=== PATIENT | male | born 1950 | race Caucasian/White ===

== ENCOUNTER 2016-04-23 11:50 | Inpatient (IN) | payer MEDICARE ==
[2016-06-26] MEDS ORDERED: LACTATED RINGERS 1,000 ML ONE ×2 (07:29→12:41)
[2016-06-26] MEDS ORDERED: IV START KIT ONE (07:29)
[2016-06-26] MEDS ORDERED: GABAPENTIN 600 MG TABLET PO ONE (07:30)
[2016-06-26] MEDS ORDERED: OXYCODONE HCL 10 MG TAB.SR PO ONE ×2 (07:30→08:33)
[2016-06-26] MEDS ORDERED: CEFAZOLIN SODIUM 2 GRAM PREMIX 100 ML IV PRN (07:30)
[2016-06-26] MEDS ORDERED: CELECOXIB 200 MG CAPSULE PO ONE (07:30)
[2016-06-26] MEDS ORDERED: TRAMADOL HCL 50 MG TABLET PO ONE (07:30)
[2016-06-26] MEDS ORDERED: CLONIDINE HCL 0.1 MG/24 HR (7 DAY PATCH) TD SCH (07:30)
[2016-06-26] MEDS ORDERED: CEFAZOLIN SODIUM 2 GRAM PREMIX 100 ML IV ONE (07:30)
[2016-06-26] MEDS ORDERED: ONDANSETRON 4 MG/2ML 2 ML VIAL IV ONE (07:30)
[2016-06-26] MEDS ORDERED: FAMOTIDINE 20 MG TABLET PO ONE (07:30)
--- NOTE | 2016-06-26 08:30 | HP ---
DATE OF CLINIC: 06/20/2016 IRVIN HOYT : 1950 PLANNED PROCEDURE: Left Knee Medial Uni-compartmental Arthroplasty, Possible Total Knee Arthroplasty DATE OF PROCEDURE: June 26, 2016 SURGEON: Irvin Barroso M.D. PCP: Dr. Eduardo Bustamante HISTORY OF PRESENT ILLNESS Irvin Hoyt is a 66 year old male. * Medication list reviewed with patient allergy list reviewed with patient. * Tried NSAIDS IBU, diclofenac * Tried Physical Therapy * Has not tried Injections Mr. Hoyt is in today pre-operatively for his upcoming left uni-compartmental knee arthroplasty. Patient presents in good spirits and is eager to proceed. 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 This required a subsequent left temporal lymph nodectomy on 05/07/16. He will also be having radiation treatment in the weeks following his L TKA. Patient otherwise denies any recent illness or prior surgical complications. His recent consultation with Dr. Barroso follows: 65-year-old male here for evaluation of bilateral, atraumatic, progressive knee pain. He feels that this is somewhat worse on the left side. Discomfort is primarily medial. Intermittent Diclofenac is helpful. He has no radicular symptoms, no hip pain. Of note, he is previously managed by Dr. Dyllan Cornelius in [place] including a left knee arthroscopy in 2008, those notes are available. He had a medial meniscal tear with grade III changes of the medial femoral condyle, grade II changes of the patellofemoral joint, grade III changes in the lateral tibial plateau. More recently, approximately a year ago, he saw his PCP, Dr. Bustamante. He had radiographs done last February demonstrating degenerative disease. He is here today for discussion of a treatment algorithm. He feels fairly limited. He denies any significant additional comorbidities. He is a recently retired forester. CURRENT MEDICATION * Atorvastatin Calcium 10 MG Tablet 1 once a day 90 days, 0 refills * Diclofenac Sodium 75 MG Tablet Delayed Release 2 once a day 30 days, 0 refills * Escitalopram Oxalate 10 MG Tablet 1 once a day 90 days, 0 refills * OneTouch Delica Lancets 33G Miscellaneous as directed 50 days, 0 refills * [employer] Sync System w/Device Kit as directed 90 days, 0 refills PAST MEDICAL/SURGICAL HISTORY Reported: Medical: History of Arthritis knees. Surgical / Procedural: Hernia repair double hernia repair 2012 and Arthroscopy Left knee scope 2005. SOCIAL HISTORY Behavioral: Caffeine use and non-smoker quit smoking stopped 35+ years ago. Smoking status: Former smoker. Alcohol: Alcohol 2-3 bud lights a day and alcohol use. Work: Occupation Retired forester. ALLERGIES * No Known Allergies REVIEW OF SYSTEMS Systemic: No fever and no recent weight change. Head: No head symptoms. Cardiovascular: No cardiovascular symptoms. Pulmonary: No pulmonary symptoms. Gastrointestinal: No gastrointestinal symptoms. Psychological: No psychological symptoms. Skin: Skin lesion: Recent left temporal ROEL's procedure and lymph nodectomy. No rash. PHYSICAL FINDINGS * Vitals taken 06/20/2016 01:23 pm BP-Sitting L 116/61 mmHg 100 - 120/60 - 80 BP Cuff Size Regular Pulse Rate-Sitting 49 bpm 50 - 100 Temp-Oral 96.8 F 96 - 101 Height 68 in 64 - 74 Weight 185 lbs 3.2 oz 123 - 215 Body Mass Index 28.2 kg/m2 Body Surface Area 1.98 m2 Ears, Nose, Throat: * ENT: normal. Lungs: * Clear to auscultation. Cardiovascular: Heart Rate and Rhythm: * Normal. Abdomen: * Normal. Neurological: Motor: * Dominant Hand = Right Hand. A formal exam was not done today. Patient is an obese male in no acute distress, normal-appearing mood and affect. He ambulates with a normal, symmetric, heel-to-toe gait, although has startup stiffness. On standing he has genu varum bilaterally, more notable on the left. These are both partially correctable towards neutral. Right knee exam shows skin integrity to be well-preserved, no wounds, rashes or lesions. No swelling, no gross effusion. Motion is 0-125 degrees. Mild tenderness over the medial aspect of the knee, diffusely, NT laterally and no pain with patellar compression. Patella tracks well. Ligamentous exam is intact for cruciates and collaterals. NT over the anteromedial proximal tibia. Calf is soft and NT. Distal light touch sensation and motor function are grossly intact and symmetric. Pulses are palpable. Gentle rotation of the hip is non-irritable. Left knee exam shows skin integrity to be well-preserved, no wounds, rashes or lesions. No swelling, no gross effusion. Motion is 3-125 degrees. Mild tenderness medial, fairly diffuse, NT lateral and no pain with patellar compression. Patella tracks well. Ligamentous exam is intact for cruciates and collaterals. NT over the anteromedial proximal tibia. Calf is soft and NT. Distal light touch sensation and motor function are grossly intact and symmetric. Pulses are palpable. Gentle rotation of the hip is non-irritable. TESTS I did review his prior radiographs. 4 views of bilateral knees obtained 09/06/15 show complete medial joint space loss most notable on the AP view with periarticular sclerosis and resultant varus deformity. Lateral compartment is relatively well preserved. Patellofemoral articulation shows mild lateral facet narrowing bilaterally, more notable on the right. ASSESSMENT * Localized primary osteoarthritis of the left knee Advanced DJD, left knee, with varus deformity. Advanced DJD, right knee, with varus deformity. PREVIOUS TESTS * Test: CBC WITH DIFF Report Date: 06/06/2016 WBC 6.4 10*3/mL BASOPHIL 0.3 % RBC 4.93 10*6/uL NEUTROPHILS 63.6 % MCH 30.8 pg MCHC 34.2 g/dL RDW 12.0 % MCV 90.3 fL PLATELET COUNT 193 10*3/mL IMM NEUT % 0.2 % IMM NEUT # 0.0 10*3/mL MONOCYTES 8.9 % EOSINOPHIL 0.8 % Low HCT 44.5 % HGB 15.2 g/L LYMPHOCYTE 26.2 % ANC 4.1 10*3/mL * Test: URINALYSIS Report Date: 06/06/2016 GLUCOSE NEGATIVE PH,URINE 6.0 SPEC. GRAVITY 1.015 KETONE NEGATIVE NITRITE NEGATIVE BLOOD NEGATIVE BILIRUBIN NEGATIVE APPEARANCE CLEAR PROTEIN NEGATIVE COLOR YELLOW LEUK ESTERASE NEGATIVE UROBILINOGEN NORMAL * Test: COMPREHENSIVE METABOLIC PANEL Report Date: 06/06/2016 ALT/SGPT 27 U/L ALBUMIN 4.0 g/dL ALB/GLOB RATIO 1.8 BUN 22 mg/dL BUN/CREAT RATIO 22 High CALCIUM 9.7 mg/dL GLUCOSE 90 mg/dL CREATININE 1.0 mg/dL SODIUM 138 meq/L POTASSIUM 4.4 meq/L CHLORIDE 104 meq/L CARBON DIOXIDE 28 meq/L ANION GAP 10 meq/L TOT PROTEIN 6.2 g/dL Low GLOBULIN 2.2 g/dL Low BILI,TOTAL 0.8 mg/dL AST/SGOT 20 U/L ALK PHOSPHATASE 50 U/L GFR 75 * Test: PROTHROMBIN TIME Report Date: 06/06/2016 PROTIME 10.5 s INR 1.00 * Test: PARTIAL THROMBOPLASTIN TIME Report Date: 06/06/2016 APTT 23.8 s Low * Test: CULTURE, MRSA Report Date: 06/07/2016 CULTURE, MRSA See Report THERAPY * Patient fall risk screen negative. * Patient eligible for fall risk assessment. * Patient received fall risk assessment. PLAN * Unilateral primary osteoarthritis, left knee Physical Therapy: PT [facility] * OTHER OxyCONTIN 10 MG T12A, 1 po q 12 hours-TO BE USED FOR AFTER SURGERY, 10 days, 0 refills OxyCODONE HCl 5 MG TABS, 1-2 po q 4-6 hours for break thru pain if needed-TO BE USED FOR AFTER SURGERY, 5 days, 0 refills * Knee replacement -partial, on the left Discussed with patient in detail the limitations, expectations as well as risks and possible complications of surgery including, but not limited to wound problems or infection, neurovascular injury, continued knee pain or dysfunction, including the possibility of prosthetic wear or failure over time that may require additional operative or non-operative treatment. Patient also realizes the perioperative risks including risks associated with anesthesia and would like to proceed. A full PAR conference was held, questions and concerns addressed and informed consent was obtained. Patient will be sent from my office for completion of the preoperative workup. Patient will use aspirin 325mg daily for 6 weeks postoperatively for DVT prophylaxis. Patient would like to perform their postop PT at [facility] with left total knee arthroplasty protocol. CARE TEAM Eduardo Bustamante MD Internal Medicine CC: Zenon Bustamante [facility], [facility]
[2016-06-26] MEDS ORDERED: CLONIDINE HCL 0.1 MG/24 HR (7 DAY PATCH) TD ONE (08:33)
[2016-06-26] MEDS ORDERED: TRAMADOL HCL 50 MG TABLET ONE (08:33)
[2016-06-26] MEDS ORDERED: ONDANSETRON 4 MG/2ML 2 ML VIAL ONE (08:33)
[2016-06-26] MEDS ORDERED: GABAPENTIN 600 MG TABLET ONE (08:33)
[2016-06-26] MEDS ORDERED: FAMOTIDINE 20 MG TABLET ONE (08:33)
[2016-06-26] MEDS ORDERED: CELECOXIB 200 MG CAPSULE ONE (08:33)
[2016-06-26] MEDS ORDERED: ROPIVACAINE 0.5% 30 ML VIAL ONE (09:15)
[2016-06-26] MEDS ORDERED: NERVE BLOCK PROCEDURAL TRAY 1 EACH ONE (09:16)
[2016-06-26] MEDS ORDERED: MIDAZOLAM HCL 5 MG/5 ML VIAL ONE ×2 (09:18→12:15)
[2016-06-26] MEDS ORDERED: FENTANYL 100 MCG/2 ML VIAL ONE (09:18)
[2016-06-26] MEDS ORDERED: TRANEXAMIC ACID 1,000 MG in SODIUM CHLORIDE 0.9% 100 ML IV PRN (09:50)
[2016-06-26] MEDS ORDERED: BUPIVACAINE 0.25% (MDV) 24 ML, MORPHINE SULFATE 8 MG, EPINEPHRINE 0.3 MG in SODIUM CHLO... IF PRN (09:50)
[2016-06-26] MEDS ORDERED: POLYMYXIN B SULFATE 500,000 UNITS, BACITRACIN 25,000 UNITS in SODIUM CHLORIDE 3 L IRRIG... IR PRN (09:50)
[2016-06-26] MEDS ORDERED: BUPIVACAINE 0.25% (MDV) 20 ML in SODIUM CHLORIDE 0.9% FLUSH 20 ML IF PRN (09:50)
[2016-06-26] MEDS ORDERED: ATROPINE SULFATE 0.4 MG/1 ML VIAL IV PRN (10:43)
[2016-06-26] MEDS ORDERED: ONDANSETRON 4 MG/2ML 2 ML VIAL IV PRN ×2 (10:43→13:35)
[2016-06-26] MEDS ORDERED: ON-Q PUMP/ROPIVACAINE 0.2% 450 ML in PREMIX BAG 1 EACH NB PRN ×2 (10:43→13:35)
[2016-06-26] MEDS ORDERED: PROMETHAZINE HCL 25 MG/ML VIAL IM PRN (10:43)
[2016-06-26] MEDS ORDERED: NALOXONE HCL 0.4 MG/ML VIAL IV PRN (10:43)
[2016-06-26] MEDS ORDERED: HYDRALAZINE HCL 20 MG/1 ML VIAL IV PRN (10:43)
[2016-06-26] MEDS ORDERED: MORPHINE SULFATE 4 MG/ML SYRINGE IV PRN (10:43)
[2016-06-26] MEDS ORDERED: MEPERIDINE 25 MG/ML SYRINGE IV PRN (10:43)
[2016-06-26] MEDS ORDERED: LACTATED RINGERS 1,000 ML IV SCH (10:45)
[2016-06-26] MEDS ORDERED: SPINAL PROCEDURAL TRAY 1 EACH ONE (11:17)
[2016-06-26] MEDS ORDERED: GLYCOPYRROLATE 0.2 MG/ML 1ML VIAL ONE (11:17)
[2016-06-26] MEDS ORDERED: DIPHENHYDRAMINE HCL 50 MG/1 ML VIAL ONE (11:17)
[2016-06-26] MEDS ORDERED: BUPIVACAINE 0.75% SPINAL AMPUL 2 ML ONE (11:17)
--- NOTE | 2016-06-26 12:16 | PCMBPN ---
Brief Post Op Note: Date of Procedure: 06/26/16 Preoperative Diagnosis: DJD left knee Postoperative Diagnosis: 1. [Same] Procedure: left UKA Surgeon: Chung Barroso MD Assist: Damaris(KIERA) Anesthesia: spinal/add block (Braulio) Findings: medial DJD Condition: stable to PAR Complications: none IV Fluids: 188 mLs of LR Urine Output: 350 mLs Estimated Blood Loss: 100 mLs Tourniquet Time: ~70 minutes Specimens: [N/A] Implants: ZUK Drains: none
[2016-06-26] MEDS ORDERED: ON-Q PUMP/ROPIVACAINE 0.2% 450 ML ONE (12:21)
--- NOTE | 2016-06-26 13:13 | RAD ---
Exam: Two-view left knee COMPARISON: 09/06/2015 INDICATION: Postop knee. Findings: AP and crosstable lateral views of left knee were obtained. There has been arthroplasty within the medial compartment of the left knee. No pericomponent fracture is identified. Alignment has improved. IMPRESSION: Expected postoperative appearance following medial compartment arthroplasty in the left knee.
[2016-06-26] MEDS ORDERED: OXYCODONE HCL 5 MG TABLET PO PRN (13:35)
[2016-06-26] MEDS ORDERED: KETOROLAC TROMETHAMINE 30 MG/ML 1 ML VIAL IV PRN (13:35)
[2016-06-26] MEDS ORDERED: CALCIUM CARBONATE 500 MG TAB.CHEW PO PRN (13:35)
[2016-06-26] MEDS ORDERED: HYDROMORPHONE HCL 0.5 MG/0.5 ML SYRINGE IV PRN (13:35)
[2016-06-26] MEDS ORDERED: TEMAZEPAM 15 MG CAPSULE PO PRN (13:35)
--- NOTE | 2016-06-26 13:36 | OP ---
IRVIN GRIFFITH [id number] : 1950 DATE OF SURGERY: June 26, 2016 PREOPERATIVE DIAGNOSIS: Left knee medial unicompartmental degenerative joint disease POSTOPERATIVE DIAGNOSIS: SAME PROCEDURE: Left Knee Medial Unicompartmental Arthroplasty COMPONENTS: ZUK size E cemented femoral component, size 4 cemented tibial base plate, 9mm Vivacit E highly cross-linked polyethylene articular insert. SURGEON: Irvin Barroso M.D. CHAPLAIN: Damaris GRAHAM) ANESTHESIA: Spinal plus adductor nerve block per Braulio ESTIMATED BLOOD LOSS: 100 cc IV FLUID REPLACEMENT: per anesthesia, 1800 cc crystalloid. URINE OUTPUT: 350 cc DRAINS: None TOURNIQUET TIME: Approximately 70 minutes COMPLICATIONS: None HISTORY: Briefly, patient is a 66-year-old male with clinical and radiographic evidence of advanced degenerative disease of the medial compartment of the left knee. Patient has failed traditional non-operative management and desire elective unicompartmental arthroplasty vs total knee arthroplasty. For additional details, please refer to the previously dictated Preoperative History and Physical Examination. A PAR conference was held, questions and concerns were addressed, and informed consent was obtained. FINDINGS: Advanced degenerative changes, near full extension under anesthesia and changes were localized with eburnated bone medially. One small spur in the notch. Patellofemoral joint was otherwise spared. Lateral compartment was normal. ACL was normal. Bone integrity was reasonable. PROCEDURE: The patient was taken to the operating room after the placement of a spinal anesthetic and regional nerve block. They were placed supine on the operating room table, a tourniquet was applied to the proximal thigh and the left lower extremity was prepped and draped out in the usual sterile fashion. Preoperative IV antibiotics were given empirically. Intraoperative DVT prophylaxis consisted of contralateral foot pumps. Personal filtration suits were used as was a closed room environment. At this point WHO timeout was taken. Surgical site was identified and confirmed. The leg was then elevated and the tourniquet inflated after gravity exsanguination. Tranexamic acid was infiltrated over 10 minutes prior to incision, 1 gram dose per protocol. A similar 2nd dose was given at initiation of closure. With the knee flexed, an anteromedial incision was made from the level of the tibial tubercle to the superior pole of the patella. A medial arthrotomy was performed. A medial subperiosteal proximal tibial release was performed and a portion of the anterior fat pad was excised to improve visualization. We evaluated the involvement of the patellofemoral compartment as well as the lateral compartment. We confirmed the ACL was intact. The anterior horn of the medial meniscus was excised. Minimally invasive instrumentation and philosophy were used throughout the procedure in an attempt to decrease the extent of soft tissue disruption/damage. Initial attention was directed to the tibia. Extramedullary tibial alignment jig was positioned and secured to bone. We setup alignment, made a cut of the medial proximal tibia perpendicular to the long axis of the tibia. This was done with a sagittal and reciprocating saw. Medial marginal osteophytes were removed. Attention was then directed to the femur. With the knee in extension we placed an appropriate spacer jig and then secured the distal femoral jig. This cut was made using a reciprocating saw. We then confirmed reasonable flexion and extension balance. We confirmed the size of the femur, placed the appropriate posterior and posterior chamfer cutting block. These cuts were made as were drilling of the femoral lugs. Residual marginal osteophytes were removed. We then confirmed the flexion and extension gaps were balanced. Tibia was then sized. We removed remaining posterior meniscal tissue. We passed a small osteotome at the lateral border and placed our tibial trial. Tibial lugs were drilled and we trialed the entire construct obtaining full extension and smooth rollback. Satisfied, double antibiotic pulsatile lavage was used to irrigate the knee and clean the cancellous suzette interstices which were then carefully dried. Periarticular injection was done at this point per protocol of the posterior capsule, posteromedial knee and synovium. A single dose of high viscosity, antibiotic impregnated polymethylmethacrylate was used to cement the tibial followed by femoral components. The knee was held in extension while the cement cured. All residual methacrylate was meticulously removed. Attention was then directed towards closure. Tranexamic acid was infiltrated over 10 minutes, dose per protocol. We irrigated and the retinaculum was closed with a running #2 absorbable StratoFix suture. A second periarticular injection was done at this point per protocol. The repair was checked in maximum flexion. We then lightly irrigated the subcutaneous tissue and closed with interrupted 2-0 and 3-0 Vicryl Plus. The skin was then re-approximated with a running subcuticular Monocryl followed by Dermabond Prineo and a sterile dressing was applied followed by a compression dressing. The patient was then transferred to their hospital bed and sent to the post anesthesia recovery room in stable condition. They tolerated the procedure well. Sponge, instrument, and needle count were correct. CC: Eduardo Bustamante PT [facility]
[2016-06-26 14:22] VITALS: BMI 27.3
[2016-06-26] MEDS ORDERED: PUMP TUBING ONE (14:45)
[2016-06-26] MEDS: D5 1/2NS with 20 mEq KCL 1,000 ML IV SCH ×2 (14:50→23:28)
[2016-06-26] MEDS: CEFAZOLIN SODIUM 1 GRAM PREMIX 1 G in Premix (D5W) 50 ml 1 EACH IV SCH (17:51)
[2016-06-26] MEDS: ACETAMINOPHEN 500 MG TABLET PO SCH (19:43)
[2016-06-26] MEDS: DOCUSATE SODIUM 100 MG CAPSULE PO SCH (20:09)
[2016-06-26] MEDS: ASCORBIC ACID 500 MG TABLET PO SCH (20:09)
[2016-06-26] MEDS ORDERED: WATER FOR IRRIG,STERILE 500 ML BOT ONE (20:17)
[2016-06-26] MEDS ORDERED: ATORVASTATIN CALCIUM 10 MG TABLET PO SCH (21:00)
[2016-06-26] MEDS ORDERED: ESCITALOPRAM 10 MG TABLET PO SCH (21:00)
[2016-06-27] MEDS: CEFAZOLIN SODIUM 1 GRAM PREMIX 1 G in Premix (D5W) 50 ml 1 EACH IV SCH (02:43)
[2016-06-27] MEDS: ACETAMINOPHEN 500 MG TABLET PO SCH ×3 (02:43→13:32)
[2016-06-27 06:08] LABS: HEMATOCRIT 38.7 % (32.0-52.0); HEMOGLOBIN 12.4 gm/l (14.0-18.0); MEAN CELL VOLUME 94.2 fl (80.0-94.0); MEAN CORPUSCULAR HEMOGLOBIN 30.2 pg (27.0-31.0)
[2016-06-27] MEDS: D5 1/2NS with 20 mEq KCL 1,000 ML IV SCH (07:27)
[2016-06-27] MEDS ORDERED: REMOVE PATCH 1 EACH UNIT TD SCH (07:30)
[2016-06-27] MEDS: DOCUSATE SODIUM 100 MG CAPSULE PO SCH (08:47)
[2016-06-27] MEDS: ASCORBIC ACID 500 MG TABLET PO SCH (08:47)
[2016-06-27] MEDS ORDERED: ASPIRIN (ENTERIC COATED) 325 MG TABLET.EC PO SCH (09:00)
[2016-06-27] MEDS ORDERED: CELECOXIB 200 MG CAPSULE PO SCH (09:00)
[2016-06-27] MEDS ORDERED: DICLOFENAC SODIUM 75 MG TABLET.EC PO SCH (09:00)
[2016-06-27] MEDS ORDERED: MULTIVITAMINS 1 TAB TABLET PO SCH (09:00)
--- NOTE | 2016-06-27 09:04 | PDOC43 ---
- Subjective Findings: Ortho POD 1 L UKA Patient awake alert and oriented times 4 this am and in good spirits. Presently finishing breakfast. No active c/o. Knee pain is well controlled. Denies CP/SOB/ NV. Taking a regular diet and positive flatus. Eager to start PT/OT. Performing bed exercises without complications. Subjective: Denies Chest Pain, Denies Shortness of Breath, Denies Nausea, Denies Vomiting, Denies Fever - Objective Vital Signs Temperature 97.8 F 06/27/16 07:36 Pulse Rate 45 06/27/16 07:36 Respiratory Rate 16 06/27/16 07:36 Blood Pressure 110/65 06/27/16 07:36 O2 Saturation by Pulse Oximetry 100 06/27/16 07:36 Oxygen Delivery Method Room Air Oxygen Flow Rate 0 Laboratory 06/27/16 05:30 06/27/16 06/26/16 06/26/16 05:30 20:19 17:58 RBC 4.11 L MCV 94.2 H MCHC 32.0 L POC Capillary Glucose 119 H 55 L Active Medication Orders Category Date Time Status Acetaminophen [Tylenol] Med 06/26/16 19:30 Active 1,000 mg PO Q6H Ascorbic Acid [Vitamin C] Med 06/26/16 21:00 Active 500 mg PO BID Aspirin (Enteric Coated) [Ecotrin] Med 06/27/16 09:00 Active 325 mg PO DAILY Atorvastatin Calcium [Lipitor] Med 06/26/16 21:00 Active 10 mg PO BEDTIME Bisacodyl [Dulcolax] Med 06/29/16 12:24 Active 10 mg MS DAILY PRN Calcium Carbonate [Tums] Med 06/26/16 13:35 Active 1,000 - 2,000 mg PO Q2H PRN Celecoxib [Celebrex] Med 06/27/16 09:00 Active 200 mg PO DAILY D5 1/2NS with 20 mEq KCL [D51/2NS with 20 mEq KCL] 1, Med 06/26/16 13:35 Active 000 ml IV 125 mls/hr Diclofenac Sodium [Voltaren] Med 06/27/16 09:00 Active 75 mg PO BID Docusate Sodium [Colace] Med 06/26/16 21:00 Active 100 mg PO BID Escitalopram Oxalate [Lexapro] Med 06/26/16 21:00 Active 10 mg PO BEDTIME Hydromorphone HCl [Dilaudid] Med 06/26/16 13:35 Active 0.5 mg IV Q1H PRN Ketorolac Tromethamine [Toradol] Med 06/26/16 13:35 Active 30 mg IV Q6H PRN Magnesium Hydroxide [Milk of Magnesia] Med 06/27/16 12:24 Active 30 ml PO DAILY PRN Multivitamins [One-A-Day] Med 06/27/16 09:00 Active 1 tab PO DAILY On-Q Pump/Ropivacaine 0.2% 450 ml Med 06/26/16 13:35 Active Premix Bag [Premix Fluid] 1 each NB Q50H Ondansetron 4 mg/2ml Vial [Zofran] Med 06/26/16 13:35 Active 4 - 6 mg IV Q6H PRN Oxycodone HCl [Roxicodone] Med 06/26/16 13:35 Active 5 - 10 mg PO Q4H PRN Remove Patch Med 06/27/16 12:24 Once 1 each TD X1 ONE Sodium Chloride 0.9% Flush [Normal Saline 10ml Flush] Med 06/26/16 13:35 Active 10 - 50 ml IV PRN PRN Sodium Chloride 0.9% Flush [Normal Saline 10ml Flush] Med 06/26/16 17:00 Active 10 ml IV Q8HR Temazepam [Restoril] Med 06/26/16 13:35 Active 15 mg PO BEDTIME PRN Intake and Output 06/25/16 06/26/16 06/27/16 23:59 23:59 23:59 Intake Total 2373 3142 Output Total 950 1500 Balance 1423 1642 Neurological: No Normal Gait (ambulating with walker post L UKA) Peripheral Pulses: Left Posterior Tibialis: 2+, Left Dorsalis Pedis: 2+ - Left Lower Extremity Incision: Well Approximated (with a sub Q closure, mesh and skin glue. Mild knee edema. Thigh and calf are SNT.), No Dressing Saturated, No Shadow Drainage , No Drainage, No Erythema, No Rash Motor: Extensor Hallucis Longus: 5/5, Tibialis Anterior: 5/5, Gastrocnemius: 5/5 , Peroneals: 5/5, Quadriceps: 4/5 Gross Sensation to Light Touch: Present: Deep Peroneal Nerve, Superficial Peroneal Nerve, Medial Plantar Nerve, Lateral Plantar Nerve, Sural Nerve, Saphenous Nerve Motion: Supine AROM 0-60 with passive improvement. SLR without assist. Ankle motion full and 5/5. - Problems (1) Status post left unicompartmental knee replacement Status: AcuteAssessment/Plan: Ortho POD 1 L UKA, patient doing well 1. Anticoagulation with aspirin 325mg daily for 6 weeks, pneumatic compression, teds, and mobility. 2. PT/OT BID post L UKA, TKA protocol WBAT. 3. Pain management as written. Call for modifications. 4. DC holli 5. Encourage spirometry, bed exercises q hour when awake. 6. Disposition: Potential to discharge home this evening if criteria met with todays therapies.
[2016-06-27] MEDS ORDERED: REMOVE PATCH 1 EACH UNIT TD ONE (12:24)
[2016-06-27] MEDS ORDERED: MAGNESIUM HYDROXIDE 30 ML UDCUP PO PRN (12:24)
[2016-06-27 13:22] LABS: CALCIUM 8.2 mg/dL (8.6-10.3)
[2016-06-27 16:04] VITALS: BP 105/64
--- NOTE | 2016-06-29 07:44 | DS ---
Chung GRIFFITH [id number] : 1950 DATE OF ADMISSION: June 26, 2016 DATE OF DISCHARGE: June 27, 2016 DISCHARGE DIAGNOSES: Left knee degenerative joint disease medial compartment. HOSPITAL PROCEDURES: Left unicompartmental knee arthroplasty medial side. SURGEON: Chung Barroso M.D. BRIEF HISTORY: Patient is a 66-year-old male with both clinical and radiographic evidence of advanced DJD of the medial compartment of his left knee. For the full history please see the chart note. BRIEF HOSPITAL COURSE: Patient was admitted on June 26, 2016. Dr. Chung Barroso performed a left knee unicompartmental arthroplasty. They were moved to the recovery room in stable condition. They were given 4 doses of antibiotic for empiric coverage. DVT prophylaxis consisted of aspirin 325 mg daily, pneumatic compression, GLADIS hose and mobility. PT was instituted postop day 1 with left total knee arthroplasty protocol, weightbearing as tolerated. Their incision site remained benign, their vital signs remained stable and they remained neurally and vascularly intact through the duration of the stay. The patient progressed very well postop day, one and he was discharged home on postop day, 1 to continue their outpatient PT at [facility] with left total knee arthroplasty protocol, weightbearing as tolerated. DISCHARGE INSTRUCTIONS: 1. Keep the wound site clean. May shower with Aquacel dressing intact. Call office with any questions or concerns and f/u for your dressing change as scheduled 1 week postop. 2. Continue the use of GLADIS hose bilaterally. 3. Cooling unit 3-4 times daily for 30 minutes duration. 4. Outpatient PT at [facility] with left total knee arthroplasty protocol, weightbearing as tolerated. MEDICATIONS: 1. Patient is to resume normal preop medications. 2. Anti-coagulation will be with aspirin 325 mg daily for six weeks. 3. Pain management will be with OxyContin, 10mg every 12 hours x 10 days, Oxycodone, 5mg 1-2 every 4 hours prn for breakthrough pain, and Celebrex 200 mg daily for 10 days. 4. Patient was also advised on utilization of a multi-vitamin with mineral daily as well as Vitamin C, 500mg daily for 1 month. 5. Patient encouraged to take an iron supplement in the form of ferrous sulfate, 325mg daily for 4 weeks. 6. Colace, 100mg, b.i.d. until regular bowel movement. FOLLOW-UP: Please return to the clinic as scheduled for your first scheduled postop check. Prior to that point in time please call with any questions or concerns. Job [id number] CC: Lowland Red Bustamante M.D., in [facility]
[2016-06-29] MEDS ORDERED: BISACODYL 10 MG SUP PR PRN (12:24)
== END 2016-06-27 18:15 | disposition home or self-care (01) | DRG 470 ==
LOC: OR 06-26 07:36 → MS 06-26 14:06
PROVIDERS: ADMIT Orthopaedic Surgery; ATTEND Orthopaedic Surgery
PROC: 0SRD0J9 Replacement of Left Knee Joint with Synthetic Substitute, Cemented, Open Approach (ICD-10-PCS; principal; 2016-06-26)
PROC: 3E0R3BZ Introduction of Anesthetic Agent into Spinal Canal, Percutaneous Approach (ICD-10-PCS; 2016-06-26)
DX: M17.12 Unilateral primary osteoarthritis, left knee (principal); Z87.891 Personal history of nicotine dependence; E66.9 Obesity, unspecified